=== PATIENT | male | born 1945 | race African-American/Black ===

== ENCOUNTER → 2019-11-06 | Outpatient (CLI) | payer MEDICARE, MEDICAID ==
[~2019-11-06] MED LIST: AMLO10TA80 PO; ASPI-1497 PO; CILO100T PO; FINA5TAB11 PO; GABA800T97 PO; METO-385 PO; TAMS-11 PO; ZOLP10TA2 PO
== END | disposition home or self-care (01) ==
LOC: LAB 13:03
PROVIDERS: ATTEND Urology
DX: Z01.818 Encounter for other preprocedural examination (principal); Z11.59 Encounter for screening for other viral diseases
CPT/HCPCS: C9803; U0003

== ENCOUNTER 2019-11-08 07:45 | Inpatient (IN) | payer MEDICARE, MEDICAID ==
[~2019-11-08] VITALS: Ht 172.7 cm; Wt 83.0 kg
[2019-11-08] MEDS ORDERED: LACTATED RINGERS 1,000 ML IV SCH (09:00)
[2019-11-08] MEDS ORDERED: ACETAMINOPHEN 500MG TABLET PO NR (10:00)
[2019-11-08] MEDS ORDERED: FENTANYL CITRATE/PF 50MCG/ML 2ML VIAL ONE (11:03)
[2019-11-08] MEDS ORDERED: PROPOFOL 200MG/20ML VIAL IV ONE (11:03)
[2019-11-08] MEDS ORDERED: LIDOCAINE HCL/PF 1% 10 MG/ML 5ML VIAL ONE (11:04)
[2019-11-08] MEDS ORDERED: SODIUM CHLORIDE 0.9% 10ML VIAL ONE (11:04)
[2019-11-08] MEDS ORDERED: CEFAZOLIN SODIUM 1000MG/VIAL ONE (11:04)
[2019-11-08] MEDS ORDERED: ONDANSETRON HCL 4MG/2ML INJ ONE (11:04)
[2019-11-08] MEDS ORDERED: DEXAMETHASONE 4MG/ML 1ML VIAL ONE (11:24)
[2019-11-08] MEDS ORDERED: TAMS-11 PO (11:54)
[2019-11-08] MEDS ORDERED: FINA5TAB11 PO (11:54)
[2019-11-08] MEDS ORDERED: AMLO10TA80 PO (11:54)
[2019-11-08] MEDS ORDERED: METO-385 PO (11:54)
[2019-11-08] MEDS ORDERED: GABA800T97 PO (11:54)
[2019-11-08] MEDS ORDERED: ASPI-1497 PO (11:54)
[2019-11-08] MEDS ORDERED: CILO100T PO (11:54)
[2019-11-08] MEDS ORDERED: ZOLP10TA2 PO (11:54)
[2019-11-08] MEDS ORDERED: HYDROMORPHONE HCL/PF 2MG/ML CPJ IV PRN (12:30)
[2019-11-08] MEDS ORDERED: MAGNESIUM HYDROXIDE 400MG/5ML 30ML UDC PO PRN (13:15)
[2019-11-08] MEDS ORDERED: ACETAMINOPHEN 325MG TABLET PO PRN (13:15)
[2019-11-08] MEDS ORDERED: LORAZEPAM 1MG TABLET PO PRN (13:15)
[2019-11-08] MEDS ORDERED: CEFAZOLIN SODIUM 1000MG/VIAL IV SCH (14:00)
[2019-11-08 18:18] VITALS: BP 134/84
[2019-11-08 20:00] VITALS: BP 153/81
[2019-11-08] MEDS: CEFAZOLIN 1000MG PREMIX 50 ML IV SCH (20:46)
[2019-11-08] MEDS: HYDROCODONE/ACETAMINOPHEN 10/325MG TABLET PO PRN (21:05)
[2019-11-09] VITALS: BP 151/92
[2019-11-09 04:00] VITALS: BP 170/107
[2019-11-09] MEDS: CEFAZOLIN 1000MG PREMIX 50 ML IV SCH (05:28)
[2019-11-09] MEDS: HYDROCODONE/ACETAMINOPHEN 10/325MG TABLET PO PRN ×2 (05:29→15:53)
[2019-11-09] MEDS ORDERED: CLONIDINE 0.1MG TABLET PO PRN (05:30)
[2019-11-09 06:48] LABS: BASOPHILS % 0.2 % (0.0-2.0); EOSINOPHILS % 0.4 % (0.0-5.0); HEMATOCRIT. 46.7 % (42.0-52.0); HEMOGLOBIN. 15.8 g/dL (14.0-18.0); LYMPHOCYTES % 18.4 % (20.0-50.0); MEAN CORPUSCULAR HEMOGLOBIN 27.5 pg (28.0-32.0); MEAN CORPUSCULAR VOLUME 80.9 fL (80.0-94.0); MEAN PLATELET VOLUME 8.8 fl (7.4-10.4); MONOCYTES % 8.6 % (2.0-8.0); NEUTROPHILS % 72.4 % (40.0-76.0); PLATELET 177 x1000/uL (130-400); RED BLOOD CELL COUNT 5.77 mill/uL (4.7-6.1); RED CELL DISTRIBUTION WIDTH 15.8 % (11.6-14.6)
[2019-11-09 06:54] LABS: CHLORIDE 109 mEq/L (98-107)
[2019-11-09] MEDS ORDERED: METOPROLOL TARTRATE 25MG TABLET PO SCH (11:00)
[2019-11-09] MEDS ORDERED: LEVOFLOXACIN 500MG TABLET PO SCH (11:00)
[2019-11-09] MEDS ORDERED: LISINOPRIL 10MG TABLET PO SCH (11:00)
[2019-11-09 17:05] VITALS: BP 154/88
== END 2019-11-09 19:09 | disposition home or self-care (01) | DRG 713 ==
LOC: OR 07:45 → 6EST 17:40
PROVIDERS: ADMIT Urology; ATTEND Urology
PROC: 0VB08ZZ Excision of Prostate, Via Natural or Artificial Opening Endoscopic (ICD-10-PCS; principal; 2019-11-08)
DX: N40.1 Benign prostatic hyperplasia with lower urinary tract symptoms (principal); N13.8 Other obstructive and reflux uropathy; I10 Essential (primary) hypertension; Z83.3 Family history of diabetes mellitus; Z87.891 Personal history of nicotine dependence; Z87.440 Personal history of urinary (tract) infections
CPT/HCPCS: 36415; 80048; 85025; 88305; J0690; J1100; J1170; J2405; J2704; J3010; J3490; C9803-CS; U0003-CS

== ENCOUNTER 2021-02-20 10:22 | Inpatient (IN) | payer MEDICARE, MEDICAID ==
[~2021-02-20] VITALS: Ht 172.7 cm; Wt 73.9 kg
[2021-02-20 11:52] LABS: BASOPHILS % 0.6 % (0.0-2.0); EOSINOPHILS % 2.9 % (0.0-5.0); HEMATOCRIT. 39.8 % (42.0-52.0); HEMOGLOBIN. 13.4 g/dL (14.0-18.0); LYMPHOCYTES % 25.1 % (20.0-50.0); MEAN CORPUSCULAR HEMOGLOBIN 27.8 pg (28.0-32.0); MEAN CORPUSCULAR VOLUME 82.2 fL (80.0-94.0); MEAN PLATELET VOLUME 8.4 fl (7.4-10.4); MONOCYTES % 7.5 % (2.0-8.0); NEUTROPHILS % 63.9 % (40.0-76.0); PLATELET 207 x1000/uL (130-400); RED BLOOD CELL COUNT 4.84 mill/uL (4.7-6.1); RED CELL DISTRIBUTION WIDTH 15.6 % (11.6-14.6)
[2021-02-20 11:59] LABS: CHLORIDE 111 mEq/L (98-107)
[2021-02-20] MEDS ORDERED: IPRATROPIUM/ALBUTEROL 0.5-3(2.5)MG/3ML NEB NEB PRN (14:15)
[2021-02-20] MEDS ORDERED: MAGNESIUM/ALUMINUM HYDROXIDE/SIMETHICONE 30ML UDC PO PRN (14:15)
[2021-02-20] MEDS ORDERED: NITROGLYCERIN 0.4MG TABLET SL SL PRN (14:15)
[2021-02-20] MEDS ORDERED: ACETAMINOPHEN 325MG TABLET PO PRN (14:15)
[2021-02-20] MEDS ORDERED: DOCUSATE SODIUM 100MG CAPSULE PO PRN (14:15)
[2021-02-20] MEDS ORDERED: NA PHOS,M-B/NA PHOS,DI-BA ENEMA 118ML PR PRN (14:15)
[2021-02-20] MEDS ORDERED: GUAIFENESIN 200MG/10ML SUGAR FREE UDC PO PRN (14:15)
[2021-02-20] MEDS ORDERED: NALOXONE HCL 0.4MG/ML VIAL IV PRN (14:30)
[2021-02-20 14:52] LABS: T4 FREE 1.34 ng/dL (0.76-1.46)
[2021-02-20 14:55] LABS: FOLIC ACID (FOLATE) SERUM 8.7 ng/mL (>5.38)
[2021-02-20] MEDS: ENOXAPARIN 40MG/0.4ML SYR SUBCUT SCH (16:22)
[2021-02-20] MEDS: SODIUM CHLORIDE 0.9% 1,000 ML IV SCH (16:22)
[2021-02-20] MEDS: AMLODIPINE 5MG TABLET PO SCH (16:23)
[2021-02-20] MEDS: TRAMADOL 50MG TABLET PO PRN (16:23)
[2021-02-20] MEDS: FAMOTIDINE 20MG TABLET PO SCH (16:23)
[2021-02-21] VITALS (7 sets, daily range): BP systolic 125–181; BP diastolic 72–104
[2021-02-21 00:03] LABS: CREATINE KINASE 159 IU/L (39-308); CREATINE KINASE MB FRACTION 1.8 ng/mL (0.5-3.6)
[2021-02-21 00:34] LABS: *AMPHETAMINES SCREEN URINE NEGATIVE (NEGATIVE); *BARBITURATES SCREEN URINE NEGATIVE (NEGATIVE); *BENZODIAZEPINES SCREEN URINE NEGATIVE (NEGATIVE); *COCAINE SCREEN URINE NEGATIVE (NEGATIVE); CANNABINOID URINE SCREEN NEGATIVE (NEGATIVE); METHADONE URINE SCREEN NEGATIVE (NEGATIVE); OPIATES URINE SCREEN NEGATIVE (NEGATIVE); PHENCYCLIDINE URINE SCREEN NEGATIVE (NEGATIVE)
[2021-02-21] MEDS: ATORVASTATIN CALCIUM 40MG TABLET PO SCH ×2 (01:21→20:01)
[2021-02-21] MEDS: SODIUM CHLORIDE 0.9% 1,000 ML IV SCH ×3 (01:23→20:04)
[2021-02-21] MEDS: CLONIDINE 0.1MG TABLET PO PRN ×3 (03:58→18:57)
[2021-02-21 04:53] LABS: BASOPHILS % 0.4 % (0.0-2.0); EOSINOPHILS % 2.6 % (0.0-5.0); HEMATOCRIT. 40.9 % (42.0-52.0); HEMOGLOBIN. 13.3 g/dL (14.0-18.0); LYMPHOCYTES % 37.7 % (20.0-50.0); MEAN CORPUSCULAR HEMOGLOBIN 26.6 pg (28.0-32.0); MEAN CORPUSCULAR VOLUME 81.8 fL (80.0-94.0); MEAN PLATELET VOLUME 8.1 fl (7.4-10.4); NEUTROPHILS % 52.3 % (40.0-76.0); PLATELET 200 x1000/uL (130-400); RED BLOOD CELL COUNT 5.01 mill/uL (4.7-6.1); RED CELL DISTRIBUTION WIDTH 15.6 % (11.6-14.6)
[2021-02-21 05:14] LABS: CHLORIDE 114 mEq/L (98-107)
[2021-02-21 05:20] LABS: PHOSPHORUS 3.6 mg/dL (2.5-4.9)
[2021-02-21 05:23] LABS: CREATINE KINASE 99 IU/L (39-308)
[2021-02-21] MEDS ORDERED: ASPIRIN 325MG EC TABLET PO SCH (09:00)
[2021-02-21] MEDS: ENOXAPARIN 40MG/0.4ML SYR SUBCUT SCH (09:36)
[2021-02-21] MEDS: ONDANSETRON HCL 4MG/2ML INJ IV PRN ×2 (09:36→20:01)
[2021-02-21] MEDS: FAMOTIDINE 20MG TABLET PO SCH (09:37)
[2021-02-21] MEDS: AMLODIPINE 5MG TABLET PO SCH (09:37)
[2021-02-21] MEDS: ASPIRIN 81MG EC TABLET PO SCH (09:37)
[2021-02-21 09:58] LABS: CREATINE KINASE MB FRACTION 2.1 ng/mL (0.5-3.6)
[2021-02-21] MEDS: ZOLPIDEM TARTRATE 5MG TABLET PO PRN (22:13)
[2021-02-22] VITALS: BP 200/128
[2021-02-22] MEDS: CLONIDINE 0.1MG TABLET PO PRN ×2 (00:43→06:38)
[2021-02-22 01:40] VITALS: BP 205/117
[2021-02-22] MEDS ORDERED: CLONIDINE 0.2MG TABLET PO SCH (02:30)
[2021-02-22] MEDS: TRAMADOL 50MG TABLET PO PRN ×2 (02:31→17:25)
[2021-02-22 04:00] VITALS: BP 161/100
[2021-02-22] MEDS: SODIUM CHLORIDE 0.9% 1,000 ML IV SCH ×3 (05:19→23:46)
[2021-02-22 08:00] VITALS: BP 176/100
[2021-02-22] MEDS: ASPIRIN 81MG EC TABLET PO SCH (08:22)
[2021-02-22] MEDS: FAMOTIDINE 20MG TABLET PO SCH (08:23)
[2021-02-22] MEDS: AMLODIPINE 5MG TABLET PO SCH (08:23)
[2021-02-22] MEDS: ENOXAPARIN 40MG/0.4ML SYR SUBCUT SCH (08:23)
[2021-02-22] MEDS: LOSARTAN POTASSIUM 100 MG TABLET PO SCH (12:21)
[2021-02-22] MEDS ORDERED: HYDRALAZINE HCL 50MG TABLET PO SCH (14:00)
[2021-02-22] MEDS: ONDANSETRON HCL 4MG/2ML INJ IV PRN (15:45)
[2021-02-22 16:00] VITALS: BP_SYST 152; BP_SYST 179; BP_DIAS 100; BP_DIAS 86
[2021-02-22] MEDS ORDERED: HYDRALAZINE 20MG/ML VIAL IV PRN (17:45)
[2021-02-22] MEDS: HYDRALAZINE HCL 100MG TABLET PO SCH ×2 (17:47→23:46)
[2021-02-22 20:00] VITALS: BP 156/78
[2021-02-22] MEDS ORDERED: AMLODIPINE 5MG TABLET PO SCH (21:00)
[2021-02-22] MEDS: AMLODIPINE 10MG TABLET PO SCH (21:10)
[2021-02-22] MEDS: ATORVASTATIN CALCIUM 40MG TABLET PO SCH (21:10)
[2021-02-22] MEDS: ZOLPIDEM TARTRATE 5MG TABLET PO PRN (23:46)
[2021-02-23] VITALS: BP_SYST 167; BP_SYST 187; BP_DIAS 87
[2021-02-23 04:00] VITALS: BP 159/88
[2021-02-23] MEDS: HYDRALAZINE HCL 100MG TABLET PO SCH ×3 (05:49→21:06)
[2021-02-23 07:34] LABS: BASOPHILS % 0.5 % (0.0-2.0); HEMATOCRIT. 45.3 % (42.0-52.0); HEMOGLOBIN. 15.1 g/dL (14.0-18.0); LYMPHOCYTES % 26.2 % (20.0-50.0); MEAN CORPUSCULAR HEMOGLOBIN 27.3 pg (28.0-32.0); MEAN PLATELET VOLUME 8.6 fl (7.4-10.4); NEUTROPHILS % 62.3 % (40.0-76.0); PLATELET 218 x1000/uL (130-400); RED BLOOD CELL COUNT 5.53 mill/uL (4.7-6.1); RED CELL DISTRIBUTION WIDTH 15.6 % (11.6-14.6)
[2021-02-23 08:00] VITALS: BP 109/61
[2021-02-23 08:04] LABS: CHLORIDE 108 mEq/L (98-107)
[2021-02-23] MEDS: ENOXAPARIN 40MG/0.4ML SYR SUBCUT SCH (08:31)
[2021-02-23] MEDS: FAMOTIDINE 20MG TABLET PO SCH (08:32)
[2021-02-23] MEDS: ASPIRIN 81MG EC TABLET PO SCH (08:32)
[2021-02-23] MEDS: TRAMADOL 50MG TABLET PO PRN ×3 (08:32→22:24)
[2021-02-23] MEDS: AMLODIPINE 10MG TABLET PO SCH ×2 (08:33→20:16)
[2021-02-23] MEDS: LOSARTAN POTASSIUM 100 MG TABLET PO SCH (08:33)
[2021-02-23] MEDS ORDERED: BARIUM SULFATE 450ML ORAL SUSP PO SCH (09:00)
[2021-02-23] MEDS ORDERED: DIATR MEGLU/DIATRIZOATE SOLN 30ML PO SCH (09:00)
[2021-02-23 12:00] VITALS: BP 141/73
[2021-02-23] MEDS: SODIUM CHLORIDE 0.9% 1,000 ML IV SCH ×2 (12:18→22:50)
[2021-02-23] MEDS ORDERED: IOHEXOL-300 100 ML BOTTLE ONE (14:36)
[2021-02-23 15:52] VITALS: BP 167/99
[2021-02-23] MEDS ORDERED: PIPERACILLIN/TAZOBACTAM 3.375 G in DEXTROSE 5% WATER 50 ML IV SCH (18:00)
[2021-02-23] MEDS: MORPHINE SULFATE 2 MG/ML CPJ (NOT FOR IM USE) IV PRN (18:29)
[2021-02-23] MEDS: ONDANSETRON HCL 4MG/2ML INJ IV PRN (18:47)
[2021-02-23 20:00] VITALS: BP 166/103
[2021-02-23] MEDS: ATORVASTATIN CALCIUM 40MG TABLET PO SCH (20:16)
[2021-02-23] MEDS: PIPERACILLIN/TAZOBACTAM 3.375G in DEXT 5% WATER 50ML IV SCH (21:06)
[2021-02-24] VITALS (7 sets, daily range): BP systolic 114–166; BP diastolic 60–96
[2021-02-24] MEDS: MORPHINE SULFATE 2 MG/ML CPJ (NOT FOR IM USE) IV PRN ×3 (03:34→16:37)
[2021-02-24] MEDS: PIPERACILLIN/TAZOBACTAM 3.375G in DEXT 5% WATER 50ML IV SCH ×3 (05:04→21:20)
[2021-02-24] MEDS: HYDRALAZINE HCL 100MG TABLET PO SCH ×3 (05:05→21:23)
[2021-02-24] MEDS: AMLODIPINE 10MG TABLET PO SCH ×2 (09:13→21:20)
[2021-02-24] MEDS: LOSARTAN POTASSIUM 100 MG TABLET PO SCH (09:13)
[2021-02-24] MEDS: SODIUM CHLORIDE 0.9% 1,000 ML IV SCH ×2 (09:13→17:56)
[2021-02-24] MEDS: ENOXAPARIN 40MG/0.4ML SYR SUBCUT SCH (09:13)
[2021-02-24] MEDS: ASPIRIN 81MG EC TABLET PO SCH (09:13)
[2021-02-24] MEDS: FAMOTIDINE 20MG TABLET PO SCH (09:13)
[2021-02-24] MEDS: ONDANSETRON HCL 4MG/2ML INJ IV PRN (16:49)
[2021-02-24] MEDS: ATORVASTATIN CALCIUM 40MG TABLET PO SCH (21:20)
[2021-02-24] MEDS: CLONIDINE 0.1MG TABLET PO PRN (21:20)
[2021-02-25] VITALS: BP 146/85
[2021-02-25 04:00] VITALS: BP 145/82
[2021-02-25] MEDS: PIPERACILLIN/TAZOBACTAM 3.375G in DEXT 5% WATER 50ML IV SCH ×3 (05:27→20:26)
[2021-02-25] MEDS: SODIUM CHLORIDE 0.9% 1,000 ML IV SCH ×3 (05:28→20:32)
[2021-02-25] MEDS: HYDRALAZINE HCL 100MG TABLET PO SCH ×3 (05:28→20:31)
[2021-02-25 08:00] VITALS: BP 154/91
[2021-02-25] MEDS: ASPIRIN 81MG EC TABLET PO SCH (08:28)
[2021-02-25] MEDS: FAMOTIDINE 20MG TABLET PO SCH (08:28)
[2021-02-25] MEDS: LOSARTAN POTASSIUM 100 MG TABLET PO SCH (08:28)
[2021-02-25] MEDS: AMLODIPINE 10MG TABLET PO SCH ×2 (08:29→20:26)
[2021-02-25] MEDS: ENOXAPARIN 40MG/0.4ML SYR SUBCUT SCH (08:29)
[2021-02-25] MEDS: MORPHINE SULFATE 2 MG/ML CPJ (NOT FOR IM USE) IV PRN ×2 (09:30→20:26)
[2021-02-25 12:00] VITALS: BP 148/89
[2021-02-25 16:00] VITALS: BP 155/96
[2021-02-25 20:00] VITALS: BP 157/89
[2021-02-25] MEDS: ATORVASTATIN CALCIUM 40MG TABLET PO SCH (20:26)
[2021-02-26] VITALS: BP 153/84
[2021-02-26 04:00] VITALS: BP 136/78
[2021-02-26] MEDS: ACETAMINOPHEN 325MG TABLET PO PRN (04:50)
[2021-02-26] MEDS: PIPERACILLIN/TAZOBACTAM 3.375G in DEXT 5% WATER 50ML IV SCH ×3 (05:12→21:51)
[2021-02-26] MEDS: HYDRALAZINE HCL 100MG TABLET PO SCH ×3 (05:12→21:51)
[2021-02-26 08:00] VITALS: BP 144/82
[2021-02-26] MEDS: MULTIVITAMINS,THER W-MINERALS TABLET PO SCH (08:35)
[2021-02-26] MEDS: FAMOTIDINE 20MG TABLET PO SCH (08:37)
[2021-02-26] MEDS: LOSARTAN POTASSIUM 100 MG TABLET PO SCH (08:37)
[2021-02-26] MEDS: ASPIRIN 81MG EC TABLET PO SCH (08:37)
[2021-02-26] MEDS: AMLODIPINE 10MG TABLET PO SCH ×2 (08:37→21:51)
[2021-02-26] MEDS: ENOXAPARIN 40MG/0.4ML SYR SUBCUT SCH (08:38)
[2021-02-26] MEDS: MORPHINE SULFATE 2 MG/ML CPJ (NOT FOR IM USE) IV PRN ×2 (08:38→14:05)
[2021-02-26] MEDS: SODIUM CHLORIDE 0.9% 1,000 ML IV SCH ×2 (10:36→21:51)
[2021-02-26 12:00] VITALS: BP 143/88
[2021-02-26] MEDS ORDERED: NALOXONE HCL 0.4MG/ML VIAL IV PRN (12:45)
[2021-02-26 16:00] VITALS: BP 145/87
[2021-02-26 20:00] VITALS: BP 135/86
[2021-02-26] MEDS: ATORVASTATIN CALCIUM 40MG TABLET PO SCH (21:51)
[2021-02-27] VITALS: BP 148/89
[2021-02-27 04:00] VITALS: BP 156/87
[2021-02-27] MEDS: ACETAMINOPHEN 325MG TABLET PO PRN (04:11)
[2021-02-27] MEDS: SODIUM CHLORIDE 0.9% 1,000 ML IV SCH ×3 (05:10→21:30)
[2021-02-27] MEDS: HYDRALAZINE HCL 100MG TABLET PO SCH ×3 (05:10→21:22)
[2021-02-27] MEDS: PIPERACILLIN/TAZOBACTAM 3.375G in DEXT 5% WATER 50ML IV SCH ×3 (05:10→21:21)
[2021-02-27 08:00] VITALS: BP 155/88
[2021-02-27] MEDS: LOSARTAN POTASSIUM 100 MG TABLET PO SCH (08:37)
[2021-02-27] MEDS: ENOXAPARIN 40MG/0.4ML SYR SUBCUT SCH (08:37)
[2021-02-27] MEDS: FAMOTIDINE 20MG TABLET PO SCH (08:38)
[2021-02-27] MEDS: ASPIRIN 81MG EC TABLET PO SCH (08:38)
[2021-02-27] MEDS: MULTIVITAMINS,THER W-MINERALS TABLET PO SCH (08:38)
[2021-02-27] MEDS: AMLODIPINE 10MG TABLET PO SCH ×2 (08:38→21:26)
[2021-02-27 12:00] VITALS: BP 146/81
[2021-02-27 16:00] VITALS: BP 148/81
[2021-02-27 20:00] VITALS: BP 149/74
[2021-02-27] MEDS: ATORVASTATIN CALCIUM 40MG TABLET PO SCH (21:22)
[2021-02-28] VITALS (7 sets, daily range): BP systolic 136–156; BP diastolic 79–96
[2021-02-28] MEDS: PIPERACILLIN/TAZOBACTAM 3.375G in DEXT 5% WATER 50ML IV SCH ×2 (06:31→14:41)
[2021-02-28] MEDS: HYDRALAZINE HCL 100MG TABLET PO SCH ×2 (06:31→14:42)
[2021-02-28] MEDS: ENOXAPARIN 40MG/0.4ML SYR SUBCUT SCH (09:49)
[2021-02-28] MEDS: FAMOTIDINE 20MG TABLET PO SCH (09:50)
[2021-02-28] MEDS: ASPIRIN 81MG EC TABLET PO SCH (09:50)
[2021-02-28] MEDS: MULTIVITAMINS,THER W-MINERALS TABLET PO SCH (09:50)
[2021-02-28] MEDS: ACETAMINOPHEN 325MG TABLET PO PRN (09:51)
[2021-02-28] MEDS: LOSARTAN POTASSIUM 100 MG TABLET PO SCH (09:51)
[2021-02-28] MEDS: AMLODIPINE 10MG TABLET PO SCH (09:52)
[2021-02-28] MEDS: SODIUM CHLORIDE 0.9% 1,000 ML IV SCH (14:42)
== END 2021-02-28 17:07 | disposition home or self-care (01) | DRG 73 ==
LOC: ER 10:22 → MICUSO 12:25 → SUPCPDRO 14:09 → 7EST 02-21 03:32 → 7WST 02-24 18:38 → 7EST 02-26 12:30
PROVIDERS: ADMIT Internal Medicine; ATTEND Internal Medicine
DX: G90.8 Other disorders of autonomic nervous system (principal); N17.0 Acute kidney failure with tubular necrosis; K57.92 Diverticulitis of intestine, part unspecified, without perforation or abscess without bleeding; I50.32 Chronic diastolic (congestive) heart failure; I69.354 Hemiplegia and hemiparesis following cerebral infarction affecting left non-dominant side; E86.0 Dehydration; I11.0 Hypertensive heart disease with heart failure; I16.0 Hypertensive urgency; I95.1 Orthostatic hypotension; N40.0 Benign prostatic hyperplasia without lower urinary tract symptoms; E78.5 Hyperlipidemia, unspecified; Z20.822 Contact with and (suspected) exposure to COVID-19; J30.2 Other seasonal allergic rhinitis; G62.9 Polyneuropathy, unspecified; Z91.018 Allergy to other foods; Z79.82 Long term (current) use of aspirin; Z79.899 Other long term (current) drug therapy; R79.89 Other specified abnormal findings of blood chemistry; D63.8 Anemia in other chronic diseases classified elsewhere
CPT/HCPCS: 36415; 71045; 74177; 80053; 80061; 80305; 82550; 82553; 82607; 82746; 82962; 83036; 83735; 83880; 84100; 84439; 84443; 84484; 85025; 87426; 93005; 93306; 93970; 97162; 97166; 97530; 97535; 99285; C1893; J0360; J1650; J2270; J2405; J2543; J7060; Q9963; Q9967